=== PATIENT | male | born 1995 | race Hispanic/Latino ===

== ENCOUNTER 2017-11-02 08:21 | Emergency (ER) | payer OTHER, SELFPAY ==
[2017-11-02] MEDS ORDERED: MECLIZINE HCL 12.5 MG TAB ONE (09:15)
[2017-11-02] MEDS ORDERED: ONDANSETRON 4 MG (ODT) TAB ONE (09:15)
--- NOTE | 2017-11-02 09:56 | RAD REPORT ---
EXAM DESCRIPTION: CT - Head Brain Wo Cont - 11/02/2017 9:39 am CLINICAL HISTORY: Headache and dizziness COMPARISON: None. TECHNIQUE: Computed axial tomography of the head was obtained. IV contrast was not requested. All CT scans are performed using dose optimization technique as appropriate and may include automated exposure control or mA/KV adjustment according to patient size. FINDINGS: An intracranial bleed is not seen . The ventricles are normal in caliber. No extra-axial fluid collection is noted. Fluid within the sinuses/ mastoids is not seen. IMPRESSION: No acute intracranial abnormality is seen. If patient's symptoms persist MRI of the bra in would be recommended.
--- NOTE | 2017-11-02 10:23 | ER ---
Nurse's Notes [facility] Name: Wan Coats Age: 22 yrs Sex: Male : 1995 Arrival Date: 11/02/2017 Time: 08:26 Bed 23 Private MD: None, None Diagnosis: Headache;Nausea and vomiting;Dizziness Presentation: 11/02 09:02 Presenting complaint: Patient states: I get dizzy when I bend over and I have a la1 headache and nausea/vomiting since yesterday. Transition of care: patient was not received from another setting of care. Onset of symptoms was November 02, 2017. Initial Sepsis Screen: Does the patient meet any 2 criteria? No. Patient's initial sepsis screen is negative. Does the patient have a suspected source of infection? No. Patient's initial sepsis screen is negative. Care prior to arrival: None. 09:02 Method Of Arrival: Ambulatory la1 09:02 Acuity: SUSANNA 3 la1 Triage Assessment: 09:04 Headache History: Denies prior headaches. General: Appears in no apparent distress. la1 Behavior is calm, cooperative. Pain: Also complains of. Pain: Pain currently is 8 out of 10 on a pain scale. Pain began 1 hour ago. Historical: - Allergies: 09:02 No Known Allergies; la1 - PMHx: 09:02 None; la1 - Immunization history:: Adult Immunizations up to date. - Social history:: Smoking status: Patient/guardian denies using tobacco. Screenin:03 Abuse screen: Denies threats or abuse. Nutritional screening: No deficits noted. la1 Tuberculosis screening: No symptoms or risk factors identified. Fall Risk None identified. Assessment: 09:03 General: Appears in no apparent distress. Behavior is calm, cooperative. Pain: la1 Complains of pain in top of head and forehead. Neuro: Level of Consciousness is awake, alert, obeys commands, Oriented to person, place, time, situation, Teachers Aide are equal bilaterally Moves all extremities. Full function Gait is steady, Speech is normal, Facial symmetry appears normal, Pupils are PERRLA. Cardiovascular: Capillary refill < 3 seconds Patient's skin is warm and dry. Respiratory: Airway is patent Respiratory effort is even, unlabored, Respiratory pattern is regular, symmetrical. GI: No signs and/or symptoms were reported involving the gastrointestinal system. 10:17 Reassessment: Patient appears in no apparent distress at this time. No changes from la1 previously documented assessment. Patient and/or family updated on plan of care and expected duration. Pain level reassessed. Vital Signs: 09:03 BP 154 / 97; Pulse 62; Resp 18; Temp 97.5(TE); Pulse Ox 100% on R/A; Weight 81.65 kg; la1 Height 5 ft. 5 in. (165.10 cm); 10:31 BP 140 / 92; Pulse 81; Resp 16; Temp 97.3; Pulse Ox 100% on R/A; la1 09:03 Body Mass Index 29.95 (81.65 kg, 165.10 cm) la1 ED Course: 08:26 Patient arrived in ED. mr 08:27 None, None is Private Physician. mr 08:58 Rajesh Matos PA is PHCP. cp 08:58 Scott Pfeiffer MD is Attending Physician. cp 09:01 Schuyler Dykes RN is Primary Nurse. la1 09:02 Triage completed. la1 09:03 Arm band placed on left wrist. la1 09:04 Placed in gown. Bed in low position. la1 09:39 CT Head Brain wo Cont In Process Unspecified. EDMS 10:31 No provider procedures requiring assistance completed. Patient did not have IV access la1 during this emergency room visit. Administered Medications: 09:16 Drug: Zofran 4 mg Route: PO; la1 10:14 Follow up: Response: No adverse reaction la1 09:16 Drug: Meclizine 25 mg Route: PO; la1 10:14 Follow up: Response: No adverse reaction la1 Outcome: 10:23 Discharge ordered by . cp 10:31 Discharged to home ambulatory. la1 10:31 Condition: stable 10:31 Discharge instructions given to patient, Instructed on discharge instructions, follow up and referral plans. medication usage, Demonstrated understanding of instructions, follow-up care, medications, Prescriptions given X 2. 10:31 Patient left the ED. la1 Signatures: Dispatcher [employer] EDDC Enedelia Spencer mr Schuyler Dykes, RN RN la1 Rajesh Matos PA PA cp
--- NOTE | 2017-11-02 10:24 | EDPHYS ---
Physician Documentation [facility] Name: Wan Coats Age: 22 yrs Sex: Male : 1995 Arrival Date: 11/02/2017 Time: 08:26 Bed 23 Private MD: None, None ED Physician Scott Pfeiffer HPI: 11/02 09:10 This 22 yrs old Male presents to ER via Ambulatory with complaints of cp Headache, Dizziness, Vomiting. 09:10 The patient complains of pain to the top of head and forehead. cp 09:10 The patient describes the headache as aching, constant. cp 09:10 Onset: The symptoms/episode began/occurred yesterday. Associated signs and symptoms: cp Pertinent positives: dizziness, nausea, vomiting, Pertinent negatives: altered mental status, fever, neck stiffness, paresthesias, sinus congestion, sinus tenderness, vision changes. Severity of symptoms: in the emergency department the pain a " 8" out of "10". Historical: - Allergies: 09:02 No Known Allergies; la1 - PMHx: 09:02 None; la1 - Immunization history:: Adult Immunizations up to date. - Social history:: Smoking status: Patient/guardian denies using tobacco. ROS: 09:15 Constitutional: Negative for body aches, chills, fever, poor PO intake. cp 09:15 Eyes: Negative for injury, pain, redness, and discharge. cp 09:15 ENT: Negative for drainage from ear(s), ear pain, sinus congestion, sore throat, cp difficulty swallowing, difficulty handling secretions. 09:15 Neck: Negative for pain with movement, pain at rest, stiffness, swollen nodes, cp tenderness. 09:15 Cardiovascular: Negative for chest pain, edema, palpitations. 09:15 Respiratory: Negative for cough, shortness of breath, wheezing. 09:15 Abdomen/GI: Positive for nausea, vomiting, Negative for abdominal pain, diarrhea, constipation, anorexia. 09:15 Back: Negative for pain at rest, pain with movement, radiated pain. 09:15 : Negative for urinary symptoms. 09:15 Skin: Negative for cellulitis, rash. 09:15 Neuro: Positive for dizziness, headache, Negative for altered mental status, numbness, speech changes, tingling, weakness. 09:15 All other systems are negative. Exam: 09:22 Constitutional: The patient appears in no acute distress, alert, awake, non-toxic, well cp developed, well nourished. 09:22 Head/Face: Normocephalic, atraumatic. Eyes: Pupils equal round and reactive to light, cp extra-ocular motions intact. Lids and lashes normal. Conjunctiva and sclera are non-icteric and not injected. Cornea within normal limits. Periorbital areas with no swelling, redness, or edema. ENT: Nares patent. No nasal discharge, no septal abnormalities noted. Tympanic membranes are normal and external auditory canals are clear. Oropharynx with no redness, swelling, or masses, exudates, or evidence of obstruction, uvula midline. Mucous membranes moist. Neck: Trachea midline, no thyromegaly or masses palpated, and no cervical lymphadenopathy. Supple, full range of motion without nuchal rigidity, or vertebral point tenderness. No Meningismus. Chest/axilla: Normal chest wall appearance and motion. Nontender with no deformity. No lesions are appreciated. 09:22 Cardiovascular: Rate: normal, Rhythm: regular, Pulses: Pulses are 2+ in right radial artery and left radial artery. Heart sounds: murmur, not appreciated, rub, not appreciated, gallop, not appreciated. 09:22 Respiratory: the patient does not display signs of respiratory distress, Respirations: normal, no use of accessory muscles, no retractions, no splinting, no tachypnea, labored breathing, is not present, Breath sounds: are clear throughout, no decreased breath sounds, no stridor, no wheezing. 09:22 Abdomen/GI: Inspection: abdomen appears normal, Bowel sounds: active, all quadrants, Palpation: abdomen is soft and non-tender, in all quadrants, rebound tenderness, is not appreciated, voluntary guarding, is not appreciated, involuntary guarding, is not appreciated. 09:22 Back: pain, is absent, ROM is normal. 09:22 Skin: cellulitis, is not appreciated, no rash present. Vital Signs: 09:03 BP 154 / 97; Pulse 62; Resp 18; Temp 97.5(TE); Pulse Ox 100% on R/A; Weight 81.65 kg; la1 Height 5 ft. 5 in. (165.10 cm); 10:31 BP 140 / 92; Pulse 81; Resp 16; Temp 97.3; Pulse Ox 100% on R/A; la1 09:03 Body Mass Index 29.95 (81.65 kg, 165.10 cm) la1 MDM: 08:58 Patient medically screened. cp 10:00 Differential diagnosis: hypoglycemia, hyponatremia, meningitis, migraine, otitis, cp sinusitis, subarachnoid bleed. 10:20 Data reviewed: vital signs, nurses notes, radiologic studies, CT scan, and as a result, cp I will discharge patient. Counseling: I had a detailed discussion with the patient and/or guardian regarding: the historical points, exam findings, and any diagnostic results supporting the discharge/admit diagnosis, radiology results, to return to the emergency department if symptoms worsen or persist or if there are any questions or concerns that arise at home. 10:21 ED course: VSS. Patient reports he is feeling better. Headache and nausea improved. No cp vomiting observed in ED. 11/02 09:07 Order name: CT Head Brain wo Cont; Complete Time: 10:04 cp 11/02 10:05 Interpretation: Report reviewed. 11/02 10:05 Order name: PO challenge; Complete Time: 10:14 cp Administered Medications: 09:16 Drug: Zofran 4 mg Route: PO; la1 10:14 Follow up: Response: No adverse reaction la1 09:16 Drug: Meclizine 25 mg Route: PO; la1 10:14 Follow up: Response: No adverse reaction la1 Disposition: 11:33 Co-signature as Attending Physician, Scott Pfeiffer MD. rn Disposition: 11/02/17 10:23 Discharged to Home. Impression: Headache, Nausea and vomiting, Dizziness. - Condition is Stable. - Discharge Instructions: Dizziness, General Headache Without Cause, Nausea and Vomiting. - Prescriptions for Meclizine 25 mg Oral Tablet - take 1 tablet by ORAL route every 8 hours As needed; 30 tablet. Zofran 4 mg Oral Tablet - take 1 tablet by ORAL route every 12 hours As needed; 20 tablet. - Work release form, Medication Reconciliation Form, Thank You Letter, Antibiotic Education, Prescription Opioid Use form. - Follow up: Private Physician; When: 1 - 2 days; Reason: Recheck today's complaints. - Problem is new. - Symptoms have improved. Signatures: Dispatcher [employer] EDMS Scott Pfeiffer MD MD rn Attema, Lee, RN RN la1 Rajesh Matos PA PA cp Corrections: (The following items were deleted from the chart) 10:31 10:23 11/02/2017 10:23 Discharged to Home. Impression: Headache; Nausea and vomiting; la1 Dizziness. Condition is Stable. Forms are Medication Reconciliation Form, Thank You Letter, Antibiotic Education, Prescription Opioid Use. Follow up: Private Physician; When: 1 - 2 days; Reason: Recheck today's complaints. Problem is new. Symptoms have improved. cp
== END 2017-11-02 10:31 | disposition home or self-care (01) ==
LOC: ER 08:21
DX: R51 Headache (principal); R11.2 Nausea with vomiting, unspecified
CPT/HCPCS: 70450; 99283

== ENCOUNTER 2020-03-25 16:47 | Emergency (ER) | payer SELFPAY ==
[2020-03-25] MEDS ORDERED: HYDROCODONE/APAP 5/325 MG TAB ONE (17:36)
--- NOTE | 2020-03-25 17:58 | RAD REPORT ---
EXAM DESCRIPTION: RAD - Knee Left 3 View - 03/25/2020 5:44 pm CLINICAL HISTORY: PAIN, no trauma history specified COMPARISON: No comparisons FINDINGS: No fracture, dislocation or periosteal reaction.No joint effusion seen. No joint space sofia rowing. No soft tissue abnormality. IMPRESSION: Negative left knee. Clinical concerns for internal derangement or occult bony injury could be further assessed with MR im aging.
--- NOTE | 2020-03-25 18:06 | EDPHYS ---
Physician Documentation [facility] Name: Wan Coats Age: 25 yrs Sex: Male : 1995 Arrival Date: 03/25/2020 Time: 16:50 Bed 16 Private MD: ED Physician Trino Godfrey HPI: 03/25 18:07 This 25 yrs old Male presents to ER via Wheelchair with complaints of Knee snw Pain. 18:07 The patient presents with an injury, pain. The complaints affect the posterior aspect snw of left knee. Context: The problem was sustained at a sports field or court, resulted from hyperextension, the patient is not able to ambulate, Problem is a result from a previous injury: No. Onset: The symptoms/episode began/occurred suddenly, just prior to arrival. Associated signs and symptoms: The patient has no apparent associated signs or symptoms. Severity of symptoms: At their worst the symptoms were moderate. The patient has not experienced similar symptoms in the past. It is unknown whether or not the patient has recently seen a physician. running on soccer field and foot planted and body kept moving forward, pain to posterior left knee. Historical: - Allergies: 17:09 No Known Allergies; ll1 - PMHx: 17:09 None; ll1 - PSHx: 17:09 abdominal surgery as a baby; ll1 - Immunization history:: Flu vaccine is not up to date. - Social history:: Smoking status: Patient denies any tobacco usage or history of. ROS: 18:05 Constitutional: Negative for fever, chills, and weight loss, Eyes: Negative for injury, snw pain, redness, and discharge, ENT: Negative for injury, pain, and discharge, Neck: Negative for injury, pain, and swelling, Cardiovascular: Negative for chest pain, palpitations, and edema, Respiratory: Negative for shortness of breath, cough, wheezing, and pleuritic chest pain, Abdomen/GI: Negative for abdominal pain, nausea, vomiting, diarrhea, and constipation, Back: Negative for injury and pain, : Negative for injury, bleeding, discharge, and swelling, Skin: Negative for injury, rash, and discoloration, Neuro: Negative for headache, weakness, numbness, tingling, and seizure, Psych: Negative for depression, anxiety, suicide ideation, homicidal ideation, and hallucinations. 18:05 MS/extremity: Positive for injury or acute deformity, pain, of the posterior aspect of left knee. Exam: 18:04 Constitutional: This is a well developed, well nourished patient who is awake, alert, snw and in no acute distress. Head/Face: Normocephalic, atraumatic. Eyes: Pupils equal round and reactive to light, extra-ocular motions intact. Lids and lashes normal. Conjunctiva and sclera are non-icteric and not injected. Cornea within normal limits. Periorbital areas with no swelling, redness, or edema. ENT: Nares patent. No nasal discharge, no septal abnormalities noted. Tympanic membranes are normal and external auditory canals are clear. Oropharynx with no redness, swelling, or masses, exudates, or evidence of obstruction, uvula midline. Mucous membranes moist. Neck: Trachea midline, no thyromegaly or masses palpated, and no cervical lymphadenopathy. Supple, full range of motion without nuchal rigidity, or vertebral point tenderness. No Meningismus. Chest/axilla: Normal chest wall appearance and motion. Nontender with no deformity. No lesions are appreciated. Cardiovascular: Regular rate and rhythm with a normal S1 and S2. No gallops, murmurs, or rubs. Normal PMI, no JVD. No pulse deficits. Respiratory: Lungs have equal breath sounds bilaterally, clear to auscultation and percussion. No rales, rhonchi or wheezes noted. No increased work of breathing, no retractions or nasal flaring. Abdomen/GI: Soft, non-tender, with normal bowel sounds. No distension or tympany. No guarding or rebound. No evidence of tenderness throughout. Back: No spinal tenderness. No costovertebral tenderness. Full range of motion. Skin: Warm, dry with normal turgor. Normal color with no rashes, no lesions, and no evidence of cellulitis. Neuro: Awake and alert, GCS 15, oriented to person, place, time, and situation. Cranial nerves II-XII grossly intact. Motor strength 5/5 in all extremities. Sensory grossly intact. Cerebellar exam normal. Normal gait. Psych: Awake, alert, with orientation to person, place and time. Behavior, mood, and affect are within normal limits. 18:04 Musculoskeletal/extremity: Extremities: grossly normal except: noted in the posterior aspect of left knee: pain, anterior/posterior drawer stable, ROM: intact in all extremities, Circulation is intact in all extremities. Sensation intact. Compartment Syndrome exam of affected extremity: is normal. Vital Signs: 17:08 BP 139 / 77; Pulse 90; Resp 17; Temp 98.2; Pulse Ox 98% ; Pain 0/10; ll1 MDM: 17:14 Patient medically screened. snw 18:07 Data reviewed: vital signs, nurses notes. Data interpreted: Pulse oximetry: on room air snw is 98 %. Interpretation: normal. Counseling: I had a detailed discussion with the patient and/or guardian regarding: the historical points, exam findings, and any diagnostic results supporting the discharge/admit diagnosis, radiology results, the need for outpatient follow up, to return to the emergency department if symptoms worsen or persist or if there are any questions or concerns that arise at home. Special discussion: Based on the history and exam findings, there is no indication for further emergent testing or inpatient evaluation. I discussed with the patient/guardian the need to see the orthopedic surgeon for further evaluation of the symptoms. I discussed with the patient/guardian the need to see the primary care provider for further evaluation of the symptoms. 03/25 17:15 Order name: Knee Left 3 View XRAY snw 03/25 17:59 Order name: RAD; Complete Time: 18:00 EDMS 03/25 18:01 Order name: Knee Immobilizer; Complete Time: 18:59 snw 03/25 18:01 Order name: Crutches; Complete Time: 18:59 snw Administered Medications: 17:26 Drug: Treynor 5 mg-325 mg 1 tabs {Note: RASS 0.} Route: PO; ll1 19:00 Follow up: Response: No adverse reaction; Pain is decreased; RASS: Alert and Calm (0) ll1 Disposition: 03/26 09:42 Co-signature as Attending Physician, Trino Godfrey MD I agree with the assessment and kdr plan of care. Disposition: 03/25/20 18:06 Discharged to Home. Impression: Internal derangement of knee. - Condition is Stable. - Discharge Instructions: Crutch Use, Knee Immobilizer, Knee Sprain, Cryotherapy, Heat Therapy. - Prescriptions for Diclofenac Sodium 75 mg Oral Tablet Sustained Release - take 1 tablet by ORAL route 2 times per day; 30 tablet. orphenadrine citrate 100 mg Oral Tablet Sustained Release - take 1 tablet by ORAL route 2 times per day As needed; 20 tablet. - Work release form, Medication Reconciliation Form, Thank You Letter, Antibiotic Education, Prescription Opioid Use form. - Follow up: Emergency Department; When: As needed; Reason: Worsening of condition. Follow up: Private Physician; When: 2 - 3 days; Reason: Recheck today's complaints, Continuance of care, Re-evaluation by your physician. Signatures: Dispatcher [employer] EDMS Trino Godfrey MD MD kdr Waters, Shelly, DIRECTOR TRUST-C DIRECTOR TRUST-Eladiow Hi Lloyd RN RN ll1 Corrections: (The following items were deleted from the chart) 03/25 18:41 18:06 03/25/2020 18:06 Discharged to Home. Impression: Internal derangement of knee. ll1 Condition is Stable. Forms are Medication Reconciliation Form, Thank You Letter, Antibiotic Education, Prescription Opioid Use. Follow up: Emergency Department; When: As needed; Reason: Worsening of condition. Follow up: Private Physician; When: 2 - 3 days; Reason: Recheck today's complaints, Continuance of care, Re-evaluation by your physician. snw
--- NOTE | 2020-03-25 18:06 | ER ---
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 Pain since with walking. Coronavirus screen: Client denies travel out of the [place] in the last 14 days. At this time, the client does not indicate any symptoms associated with coronavirus-19. Ebola Screen: Patient denies travel to an Ebola-affected area in the 21 days before illness onset. Initial Sepsis Screen: Does the patient meet any 2 criteria? No. Patient's initial sepsis screen is negative. Risk Assessment: Do you want to hurt yourself or someone else? Patient reports no desire to harm self or others. Onset of symptoms was March 25, 2020. 17:08 Method Of Arrival: Wheelchair ll1 17:08 Acuity: SUSANNA 4 ll1 17:10 Initial Sepsis Screen: Does the patient have a suspected source of infection? No. ll1 Patient's initial sepsis screen is negative. Historical: - Allergies: 17:09 No Known Allergies; ll1 - PMHx: 17:09 None; ll1 - PSHx: 17:09 abdominal surgery as a baby; ll1 - Immunization history:: Flu vaccine is not up to date. - Social history:: Smoking status: Patient denies any tobacco usage or history of. Screenin:10 Abuse screen: Denies threats or abuse. Nutritional screening: No deficits noted. ll1 Tuberculosis screening: No symptoms or risk factors identified. Fall Risk Ambulatory Aid- Crutches/Cane/Walker (15 pts). Gait- Impaired (20 pts.). Total Wei Fall Scale indicates Low Risk Score (25-44 pts). Fall prevention measures have been instituted. Side Rails Up X 2 Frequent Obs/Assesments occuring As available Patient and Family Educated on Fall Prevention Program and strategies. Assessment: 17:11 General: Appears uncomfortable, Behavior is calm, cooperative. Pain: Complains of pain ll1 in L knee Pain currently is 0 out of 10 on a pain scale. Aggravated by increased activity. Neuro: No deficits noted. Cardiovascular: No deficits noted. Respiratory: No deficits noted. Musculoskeletal: Circulation, motion, and sensation intact. Capillary refill < 3 seconds, Reports pain in L knee. 18:35 Musculoskeletal: Circulation, motion, and sensation intact. Capillary refill < 3 ll1 seconds, Tenderness present in posterior aspect of left knee Reports pain in posterior aspect of left knee. Injury Description: Bruise. Vital Signs: 17:08 BP 139 / 77; Pulse 90; Resp 17; Temp 98.2; Pulse Ox 98% ; Pain 0/10; ll1 ED Course: 16:50 Patient arrived in ED. ds1 16:56 Selma Pruitt FNP-C [facility]. snw 16:56 Trino Godfrey MD is Attending Physician. snw 17:04 Hi Lloyd, RN is Primary Nurse. ll1 17:09 Triage completed. ll1 17:10 Arm band placed on Patient placed in an exam room, on a stretcher. ll1 17:10 Patient has correct armband on for positive identification. Bed in low position. Call ll1 light in reach. Side rails up X 1. Pulse ox on. NIBP on. 18:30 Knee immobilizer applied on left knee. ll1 18:40 No provider procedures requiring assistance completed. Patient did not have IV access ll1 during this emergency room visit. Administered Medications: 17:26 Drug: Hornitos 5 mg-325 mg 1 tabs {Note: RASS 0.} Route: PO; ll1 19:00 Follow up: Response: No adverse reaction; Pain is decreased; RASS: Alert and Calm (0) ll1 Outcome: 18:06 Discharge ordered by . snw 18:41 Patient left the ED. ll1 18:41 Discharged to home ll1 18:41 Discharged to home via wheelchair. 18:41 Condition: stable 18:41 Discharge instructions given to patient, Instructed on discharge instructions, follow up and referral plans. medication usage, crutch walking, Demonstrated understanding of instructions, follow-up care, medications, crutch walking, splint care, Prescriptions given X 2. Signatures: Selma Pruitt FNP-C [employer]CHO[employer] B[employer] DIRECTOR-Csnw HernandezKarmen roman ds1 Hi Lloyd, RN RN ll1
[2020-03-25 18:55] VITALS: BP 139/77; TEMP 98.2; O2SAT 98
== END 2020-03-25 18:41 | disposition home or self-care (01) ==
LOC: ER 16:47
DX: M23.92 Unspecified internal derangement of left knee (principal); X58.XXXA Exposure to other specified factors, initial encounter; Y93.02 Activity, running; Y92.322 Soccer field as the place of occurrence of the external cause
CPT/HCPCS: 99284

== ENCOUNTER 2022-08-03 16:06 | Emergency (ER) | payer SELFPAY ==
--- OUTSIDE RECORDS SUMMARY | 2022-08-03 16:09 | XMS REPORT | Continuity of Care Document ---
:[address] [facility] t Address [address] [place] [address] Care Team Providers Name Role Phone PCP, PATIENT DOES NOT HAVE A Primary Care Physician Unavaila ble MARCELINA LIZ Attending Clinician Unavailable Marcelina Liz MD Attending Clinician MARCELINA LIZ Admitting Clinician Unavailable Problems This patient has no known problems. Allergies, Adverse Reactions, Alerts Allergy Allergy Status Severity Reaction(s) Onset Inactive Treating Comm ents Source Name Type Date Date Clinician NO KNOWN Drug Active [facility] ALLERGIE Class [facility] [place] [facility] Social History Social Habit Start Date Stop Date Quantity Comments Source Exposure to 2022-04-02 2022-04-[address] [facility] SARS-CoV-2 (event) 00:00:00 20:10:00 Medica l Branch Sex Assigned At [birth year] [facility] 00:00:00 00:00:00 Medical Branch Smoking Status Start Date Stop Date Source Tobacco smoking consumption [facility] Medical unknown Branch Medications Ordered Filled Start Stop Current Ordering Indication Dosage Frequency Signature Comments Components Source Medication Medication Date Date Medication? Clinician (SIG) Name Name traMADOL Yes 50mg Take 1 Univers (ULTRAM) 50 4-21 tablet by ity of mg tablet 00:00: mouth [place] 00 every 6 Medical (six) Branch hours as needed for Pain (scale 4-6). Mino Quintana PA-C / Seth Epstein MD DANE# [id number] DPS# [id number] x Lic.# [id number] [facility]# [id number] Vital Signs Vital Name Observation Time Observation Value Comments Source Systolic blood 2022-04-13 02:48:44 127 mm[Hg] Univer sity of pressure [facility] Diastolic blood 2022-04-13 02:48:44 77 mm[Hg] Unive rsity of pressure [facility] Heart rate 2022-04-13 02:48:44 75 /min [facility] Body temperature 2022-04-13 02:48:[address] Respiratory rate 2022-04-13 02:48:44 18 /min [facility] Oxygen saturation in 2022-04-13 02:48:12 99 /min [facility] Arterial blood by [facility] Pulse oximetry Branch Body height 2022-04-13 01:11:00 165.1 cm [facility] Body weight 2022-04-13 01:11:00 83.915 kg [facility] BMI 2022-04-13 01:11:00 30.79 kg/m2 [facility] Procedures Procedure Date / Time Performed Performing Clinician [facility] e NOTICE OF PRIVACY 2022-04-13 01:08:14 Doctor Unassigned, No Univ [facility] PRACTICES Name Medical Branch Encounters Start End Encounter Admission Attending Care Care Encounter Source Date/Time Date/Time Type Type Clinicians Facility Department ID 2022-04-12 2022-04-12 Emergency X [facility] ERT [id number] Univers 20:15:00 21:52:00 [facility] ity [facility] 2022-04-12 2022-04-12 Emergency [facility] [id number] Univers 20:15:00 21:52:00 Marcelina Peace [place] [id number] ity [facility] [id number] [facility] [id number] Medi jimena 084 Branch Results This patient has no known results.
--- NOTE | 2022-08-03 18:07 | EDPHYS ---
Physician Documentation [facility] Name: Wan Coats Jr Age: 27 yrs Sex: Male : 1995 Arrival Date: 08/03/2022 Time: 16:08 Bed DX3 Private MD: ED Physician Trino Godfrey HPI: 08/03 18:10 This 27 yrs old Male presents to ER via Ambulatory with complaints of Back kdr Pain, rib pain. 18:10 Patient complains of posterior lateral inferior chest wall pain. Is been going on for kdr about a week. At rest he has little or no pain. With movement he does have significant spasm pain. He denies any nausea vomiting. He denies fever chills cough congestion. He denies hematuria or pain with urination. He denies CVA tenderness. He is not marfanoid. He is nonacute and not requiring any emergent intervention in the ED at this time. Onset: The symptoms/episode began/occurred gradually, 1 week(s) ago. Severity of symptoms: At their worst the symptoms were moderate in the emergency department the symptoms are unchanged. The patient has not experienced similar symptoms in the past. The patient has not recently seen a physician. Historical: - Allergies: 16:19 No Known Drug Allergies; ll1 - PMHx: 16:19 None; ll1 - PSHx: 16:19 abdominal SX as a baby; ll1 - Immunization history:: Client reports having NOT received the Covid vaccine. - Social history:: Smoking status: Patient denies any tobacco usage or history of. ROS: 18:10 Constitutional: Negative for fever, chills, and weight loss, Eyes: Negative for injury, kdr pain, redness, and discharge, ENT: Negative for injury, pain, and discharge, Neck: Negative for injury, pain, and swelling, Cardiovascular: Negative for chest pain, palpitations, and edema, Respiratory: Negative for shortness of breath, cough, wheezing, and pleuritic chest pain, Abdomen/GI: Negative for abdominal pain, nausea, vomiting, diarrhea, and constipation, : Negative for injury, bleeding, discharge, and swelling, MS/Extremity: Negative for injury and deformity, Skin: Negative for injury, rash, and discoloration, Neuro: Negative for headache, weakness, numbness, tingling, and seizure activity. Psych: Negative for depression, anxiety, suicide ideation, homicidal ideation, and hallucinations, Allergy/Immunology: Negative for hives, rash, and allergies, Endocrine: Negative for neck swelling, polydipsia, polyuria, polyphagia, and marked weight changes, Hematologic/Lymphatic: Negative for swollen nodes, abnormal bleeding, and unusual bruising. 18:10 Back: Positive for pain with movement, Negative for injury or acute deformity, pain at rest, radiated pain, acute changes. Exam: 18:10 Constitutional: This is a well developed, well nourished patient who is awake, alert, kdr and in no acute distress. Head/Face: Normocephalic, atraumatic. Neck: Trachea midline, no thyromegaly or masses palpated, and no cervical lymphadenopathy. Supple, full range of motion without nuchal rigidity, or vertebral point tenderness. No Meningismus. Cardiovascular: Regular rate and rhythm with a normal S1 and S2. No gallops, murmurs, or rubs. Normal PMI, no JVD. No pulse deficits. Respiratory: Lungs have equal breath sounds bilaterally, clear to auscultation and percussion. No rales, rhonchi or wheezes noted. No increased work of breathing, no retractions or nasal flaring. Abdomen/GI: Soft, non-tender, with normal bowel sounds. No distension or tympany. No guarding or rebound. No evidence of tenderness throughout. 18:10 Chest/axilla: Inspection: normal, Palpation: is normal, crepitus, is not appreciated, tenderness, that is mild, of the right lateral posterior chest. Vital Signs: 16:20 BP 145 / 91; Pulse 80; Resp 17; Temp 98.6; Pulse Ox 100% ; Weight 84.82 kg; Height 5 ll1 ft. 5 in. (165.10 cm); Pain 8/10; 16:20 Body Mass Index 31.12 (84.82 kg, 165.10 cm) ll1 MDM: 18:07 Patient medically screened. kdr 18:10 Data reviewed: vital signs. Management of patient was discussed with the following: kdr Patient. Administered Medications: 18:23 Drug: Ibuprofen 600 mg Route: PO; iw 18:23 Drug: Flexeril (cyclobenzaprine) 10 mg Route: PO; iw 18:23 Drug: predniSONE 20 mg Route: PO; iw Disposition Summary: 08/03/22 18:07 Discharge Ordered Location: Home kdr Problem: new kdr Symptoms: have improved kdr Condition: Stable kdr Diagnosis - Strain of muscle and tendon of thorax - Posterior inferior lateral kdr Followup: kdr - With: Private Physician - When: 2 - 3 days - Reason: If symptoms return, Further diagnostic work-up, Recheck today's complaints, Continuance of care, Re-evaluation by your physician Discharge Instructions: - Discharge Summary Sheet kdr - Chest Wall Pain, [id number] kdr Forms: - Medication Reconciliation Form kdr - Thank You Letter kdr - Work release form iw Prescriptions: - Ibuprofen 600 mg Oral Tablet - take 1 tablet by ORAL route every 6 hours As needed take with food; 30 tablet; kdr Refills: 0, Product Selection Permitted - Prednisone 20 mg Oral Tablet - take 1 tablet by ORAL route once daily for 5 days; 5 tablet; Refills: 0, kdr Product Selection Permitted - Cyclobenzaprine 10 mg Oral Tablet - take 1 tablet by ORAL route every 8 hours As needed; 30 tablet; Refills: 0, kdr Product Selection Permitted Signatures: Trino Godfrey MD MD kdr Suzy Stock, RN RN iw Hi Lloyd RN RN ll1
--- NOTE | 2022-08-03 18:07 | ER ---
Nurse's Notes [facility] Name: Wan Coats Jr Age: 27 yrs Sex: Male : 1995 Arrival Date: 08/03/2022 Time: 16:08 Bed DX3 Private MD: Diagnosis: Strain of muscle and tendon of thorax-Posterior inferior lateral Presentation: 08/03 16:20 Chief complaint: Patient states: R mid back pain that wraps around to R flank for 1 ll1 week. No fever or dysuria. Coronavirus screen: Vaccine status: Patient reports being unvaccinated. Client denies travel out of the [place] in the last 14 days. At this time, the client does not indicate any symptoms associated with coronavirus-19. Ebola Screen: Patient denies travel to an Ebola-affected area in the 21 days before illness onset. Initial Sepsis Screen: Does the patient meet any 2 criteria? No. Patient's initial sepsis screen is negative. Does the patient have a suspected source of infection? No. Patient's initial sepsis screen is negative. Risk Assessment: Do you want to hurt yourself or someone else? Patient reports no desire to harm self or others. Onset of symptoms was July 28, 2022. 16:20 Method Of Arrival: Ambulatory ll1 16:20 Acuity: SUSANNA 4 ll1 Historical: - Allergies: 16:19 No Known Drug Allergies; ll1 - PMHx: 16:19 None; ll1 - PSHx: 16:19 abdominal SX as a baby; ll1 - Immunization history:: Client reports having NOT received the Covid vaccine. - Social history:: Smoking status: Patient denies any tobacco usage or history of. Vital Signs: 16:20 BP 145 / 91; Pulse 80; Resp 17; Temp 98.6; Pulse Ox 100% ; Weight 84.82 kg; Height 5 ll1 ft. 5 in. (165.10 cm); Pain 8/10; 16:20 Body Mass Index 31.12 (84.82 kg, 165.10 cm) ll1 ED Course: 16:08 Patient arrived in ED. as 16:21 Triage completed. ll1 16:21 Arm band placed on. ll1 17:14 Trino Godfrey MD is Attending Physician. kdr 18:23 Suzy Stock RN is Primary Nurse. iw Administered Medications: 18: Drug: Ibuprofen 600 mg Route: PO; iw 18: Drug: Flexeril (cyclobenzaprine) 10 mg Route: PO; iw 18: Drug: predniSONE 20 mg Route: PO; iw Outcome: 18: Discharge ordered by . kdr 18: Patient left the ED. iw Signatures: Trino Godfrey MD MD kdr Martinez, Amelia as Williams, Irene, RN RN iw Hi Lloyd RN RN ll1
[2022-08-03] MEDS ORDERED: CYCLOBENZAPRINE 10 MG TAB ONE (18:15)
[2022-08-03] MEDS ORDERED: IBUPROFEN 200 MG TAB PO ONE (18:16)
[2022-08-03] MEDS ORDERED: predniSONE 20 MG TAB ONE (18:16)
[2022-08-03 18:32] VITALS: BP 145/91; TEMP 98.6; O2SAT 100
== END 2022-08-03 18:23 | disposition home or self-care (01) ==
LOC: ER 16:06
DX: S29.012A Strain of muscle and tendon of back wall of thorax, initial encounter (principal)
CPT/HCPCS: 99282; J7512

== ENCOUNTER 2024-03-13 03:15 | Emergency (ER) | payer OTHER, SELFPAY ==
[2024-03-13] MEDS ORDERED: LIDOCAINE 2% W/EPI 1:200,000 MPF 20 ML VIAL IM ONE (03:44)
[2024-03-13] MEDS ORDERED: TDAP (DIPHTH,PERTUSS(ACELL),TET VAC) 0.5 ML VIAL IMVAC ONE (03:45)
--- NOTE | 2024-03-13 04:48 | ER ---
Nurse's Notes [facility] Name: Wan Coats Jr Age: 29 yrs Sex: Male : 1995 Arrival Date: 03/13/2024 Time: 03:15 Bed 4 Private MD: Diagnosis: Facial laceration Presentation: 03/13 03:40 Chief complaint: Patient states: cut his left eyebrow on something, does not remember, iw was out drinking tonight, got home and hit his head. Coronavirus screen: At this time, the client does not indicate any symptoms associated with coronavirus-19. Ebola Screen: No symptoms or risks identified at this time. Complicating Factors: There are no complicating factors for this patient. Initial Sepsis Screen: Does the patient meet any 2 criteria? No. Patient's initial sepsis screen is negative. Does the patient have a suspected source of infection? No. Patient's initial sepsis screen is negative. Risk Assessment: Do you want to hurt yourself or someone else? Patient reports no desire to harm self or others. Onset of symptoms was March 13, 2024. 03:40 Method Of Arrival: Ambulatory iw 03:40 Acuity: SUSANNA 4 iw Historical: - Allergies: 03:41 No Known Allergies; iw - Home Meds: 03:41 None [Active]; iw - PMHx: 03:41 None; iw - PSHx: 03:41 abdominal SX as a baby; iw - Immunization history:: Adult Immunizations not up to date. - Infectious Disease History:: Denies. - Social history:: Smoking status: . - Family history:: not pertinent. Screenin:42 [facility] ED Fall Risk Assessment (Adult) History of falling in the last 3 months, iw including since admission No falls in past 3 months (0 pts) Confusion or Disorientation No (0 pts) Intoxicated or Sedated No (0 pts) Impaired Gait No (0 pts) Mobility Assist Device Used No (0 pt) Altered Elimination No (0 pt) Score/Fall Risk Level 0 - 2 = Low Risk Oriented to surroundings. Abuse screen: Denies injuries from another. Nutritional screening: No deficits noted. Tuberculosis screening: No symptoms or risk factors identified. Assessment: 03:41 General: Appears in no apparent distress. Behavior is calm, cooperative. Pain: iw Complains of pain in inner aspect of left eyebrow, middle aspect of left eyebrow and outer aspect of left eyebrow. Neuro: Level of Consciousness is awake, alert, obeys commands, Oriented to person, place, time, situation, Derm: Musculoskeletal: Range of motion: intact in all extremities. Injury Description: Laceration is clean, 0.5 to 2.5 cm long, not bleeding. 03:49 Reassessment:. iw Vital Signs: 03:40 BP 136 / 97; Pulse 79; Resp 16; Temp 98.1; Pulse Ox 98% on R/A; iw ED Course: 03:27 Patient arrived in ED. gm2 03:37 Rey Masterson MD is Attending Physician. rt 03:41 Triage completed. iw 03:41 Arm band placed on. iw 03:41 Patient has correct armband on for positive identification. Provided Education on: need iw for lac repair . 03:49 Suzy Stock, RN is Primary Nurse. iw 03:50 Patient did not have IV access during this emergency room visit. iw 05:00 Assist provider with laceration repair on middle aspect of left eyebrow and inner iw aspect of left eyebrow that was 2.5 cm. or less using sutures. Set up tray. Performed by Rey Masterson MD Patient tolerated well. Administered Medications: 03:49 Drug: Boostrix Tdap 0.5 ml IM once; as a single dose Route: IM; Site: right deltoid; iw 04:40 Follow up: Response: (VIS) Vaccine information sheet provided today. Questions and/or iw concerns addressed. VIS edition date: Feb 01, 2021.; No adverse reaction 04:47 Drug: Lidocaine-Epinephrine Infiltration -1%: (1:100,000) 5 ml 20 ml Infiltration once; jj7 to bedside {Note: ADMINSTERED BY DR MASTERSON.} Volume: 20 ml; Route: Infiltration; Medication: 03:49 Vaccine Information Statement (VIS) provided today. Questions and/or concerns iw addressed. VIS edition date: January 2021. Outcome: 04:47 Discharge ordered by . rt 05:09 Discharged to home ambulatory, iw 05:09 Condition: good 05:09 Discharge instructions given to patient, Instructed on discharge instructions, follow up and referral plans. wound care, Demonstrated understanding of instructions, follow-up care, wound care, 05:10 Patient left the ED. kmf Signatures: Suzy Stock, RN RN Hiren Leyva RN RN jj7 Rey Masterson MD MD rt Mitchell, Ginger 2 Priya Murray [facility]
--- NOTE | 2024-03-13 04:48 | EDPHYS ---
Physician Documentation [facility] Name: Wan Coats Jr Age: 29 yrs Sex: Male : 1995 Arrival Date: 03/13/2024 Time: 03:15 Bed 4 Private MD: ED Physician Rey Masterson HPI: 03/13 05:40 This 29 yrs old Male presents to ER via Ambulatory with complaints of rt Laceration. 05:40 Patient presents to the ED with a laceration of the left eyebrow. Patient fell, does rt not recall the fall. Denies neck pain. Denies other acute complaints, symptoms are mild in severity, no other aggravating alleviating factors.. Historical: - Allergies: 03:41 No Known Allergies; iw - Home Meds: 03:41 None [Active]; iw - PMHx: 03:41 None; iw - PSHx: 03:41 abdominal SX as a baby; iw - Immunization history:: Adult Immunizations not up to date. - Infectious Disease History:: Denies. - Social history:: Smoking status: . - Family history:: not pertinent. ROS: 05:40 Constitutional: Negative for fever, chills, and weight loss, Neck: Negative for injury, rt pain, and swelling, Cardiovascular: Negative for chest pain, palpitations, and edema, Respiratory: Negative for shortness of breath, cough, wheezing, and pleuritic chest pain, Abdomen/GI: Negative for abdominal pain, nausea, vomiting, diarrhea, and constipation, 05:40 Skin: Positive for laceration(s), Negative for abrasions, Exam: 05:40 Constitutional: This is a well developed, well nourished patient who is awake, alert, rt and in no acute distress. Neck: Trachea midline, no thyromegaly or masses palpated, and no cervical lymphadenopathy. Supple, full range of motion without nuchal rigidity, or vertebral point tenderness. No Meningismus. Chest/axilla: Normal chest wall appearance and motion. Nontender with no deformity. No lesions are appreciated. Cardiovascular: Regular rate and rhythm with a normal S1 and S2. No gallops, murmurs, or rubs. Normal PMI, no JVD. No pulse deficits. Respiratory: Lungs have equal breath sounds bilaterally, clear to auscultation and percussion. No rales, rhonchi or wheezes noted. No increased work of breathing, no retractions or nasal flaring. Abdomen/GI: Soft, non-tender, with normal bowel sounds. No distension or tympany. No guarding or rebound. No evidence of tenderness throughout. 05:40 Head/face: Laceration to the left eyebrow, 3 cm. Vital Signs: 03:40 BP 136 / 97; Pulse 79; Resp 16; Temp 98.1; Pulse Ox 98% on R/A; iw Laceration: 05:40 Wound Repair of 3cm ( 1.2in ) subcutaneous laceration to middle aspect of left eyebrow. rt Linear shaped.. Distal neuro/vascular/tendon intact. Anesthesia: Local anesthetic administered with 2 mls of 1% lidocaine w/ Epi. Wound prep: Copious irrigation. Skin closed with 6 5-0 Prolene using simple sutures and sterile technique. Patient tolerated well. MDM: 03:38 Patient medically screened. rt 05:40 Differential Diagnosis Laceration. Data reviewed: vital signs, nurses notes. rt 05:40 Counseling: I had a detailed discussion with the patient and/or guardian regarding the rt historical points, exam findings, and any diagnostic results supporting the discharge/admit diagnosis, the need for outpatient follow up. Refusal of service: The patient/guardian displays adequate decision making capability and despite a detailed discussion of alternatives, benefits, risks, and consequences refuses: CT Scan, Patient was drinking alcohol but is able to verbalize risks of foregoing CT scan to include missed skull fracture, intracranial hemorrhage. Understands that or permanent disability may be outcomes of missed intracranial diagnosis. He has capacity to refuse CT scan.. 03/13 03:42 Order name: Gloves, Sterile; Complete Time: 04:47 rt 03/13 03:42 Order name: Setup Suture Tray; Complete Time: 03:51 rt Administered Medications: 03:49 Drug: Boostrix Tdap 0.5 ml IM once; as a single dose Route: IM; Site: right deltoid; iw 04:40 Follow up: Response: (VIS) Vaccine information sheet provided today. Questions and/or iw concerns addressed. VIS edition date: Feb 01, 2021.; No adverse reaction 04:47 Drug: Lidocaine-Epinephrine Infiltration -1%: (1:100,000) 5 ml 20 ml Infiltration once; jj7 to bedside {Note: ADMINSTERED BY DR MASTERSON.} Volume: 20 ml; Route: Infiltration; Disposition Summary: 03/13/24 04:47 Discharge Ordered Notes: Location: Home rt Problem: new rt Symptoms: have improved rt Condition: Stable rt Diagnosis - Facial laceration rt Followup: rt - With: Private Physician - When: 7 - 10 days - Reason: Staple/Suture removal Discharge Instructions: - Discharge Summary Sheet rt - Facial Laceration rt Forms: - Medication Reconciliation Form rt - Antibiotic Education rt - Prescription Opioid Use rt - Patient Portal Instructions rt - Leadership Thank You Letter rt Signatures: Dispatcher [employer] Suzy Jasso, Hiren Vieyra RN, RN RN jj7 Rey Masterson MD MD rt
[2024-03-13 05:14] VITALS: BP 136/97; TEMP 98.1; O2SAT 98
== END 2024-03-13 05:10 | disposition home or self-care (01) ==
LOC: ER 03:15
PROC: 0HQ1XZZ Repair Face Skin, External Approach (ICD-10-PCS; principal; 2024-03-13)
DX: S01.112A Laceration without foreign body of left eyelid and periocular area, initial encounter (principal)
CPT/HCPCS: 12013; 96372; 99284